=== PATIENT | male | born 1995 | race Caucasian/White ===

== ENCOUNTER 2021-12-20 05:32 | Emergency (ER) | payer OTHER ==
[~2021-12-20] VITALS: Ht 180.3 cm; Wt 75.0 kg
[2021-12-20 05:38] VITALS: TEMP 97.5
[2021-12-20 06:36] LABS: BASO # 0.1 K/mm3 (0.0-0.2); EOS # 0.2 K/mm3 (0.0-0.7); EOS % 2.2 % (0.0-4.0); GRAN # 3.3 K/mm3 (1.4-6.5); GRAN % 41.3 % (42.2-75.2); HEMATOCRIT 45.4 % (42.0-52.0); LYMPH # 3.5 K/mm3 (1.2-3.4); LYMPH % 44.2 % (20.0-51.0); MEAN CELL VOLUME 83 fl (80.0-100.0); MEAN CORPUSCULAR HEMOGLOBIN 29 pg (27-31); MEAN CORPUSCULAR HGB CONC 35 g/dl (33.0-37.0); MEAN PLATELET VOLUME 11.2 fl (7.4-10.4); MONO # 0.9 K/mm3 (0.1-0.6); MONO % 10.8 % (1.7-9.3); PLATELET COUNT 286 K/mm3 (130-400); RED BLOOD COUNT 5.47 M/mm3 (4.20-5.60); REDCELL DISTRIBUTION WIDTH-CV 12.8 % (11.5-14.5)
[2021-12-20 07:01] LABS: ALANINE AMINOTRANSFERASE 17 U/L (0-55); ALBUMIN 4.3 gm/dL (3.5-5.0); ALKALINE PHOSPHATASE 55 U/L (40-150); ANION GAP 10 mmol/L (7-16); AST,SGOT 13 U/L (5-34); BILIRUBIN,TOTAL 0.8 mg/dL (0.2-1.2); BLOOD UREA NITROGEN 12 mg/dL (9-21); CALCIUM 8.9 mg/dL (8.4-10.2); CARBON DIOXIDE 23 mmol/L (22-29); CHLORIDE 107 mmol/L (98-107); CREATININE, serum 1.26 mg/dL (0.72-1.25); GLUCOSE 125 mg/dL (70-99); POTASSIUM 3.5 mmol/L (3.5-4.5); SODIUM 140 mmol/L (136-145); TOTAL PROTEIN 6.9 gm/dL (6.2-8.1)
[2021-12-20 07:09] LABS: TROPONIN-I < 0.010 ng/mL (0.00-0.033)
[2021-12-20] MEDS ORDERED: NORCO 325 MG-51 TAB PO (11:18)
[2021-12-20 11:40] VITALS: BP 113/62; PULSE 59
== END 2021-12-20 11:40 | disposition home or self-care (01) ==
LOC: COL.ER 05:32
PROVIDERS: Emergency Medicine
DX: J93.9 Pneumothorax, unspecified (principal)
CPT/HCPCS: J1885; J7030

== ENCOUNTER → 2021-12-23 | Outpatient (CLI) | payer OTHER ==
[~2021-12-23] MED LIST: NORCO 325 MG-51 TAB PO
== END ==
LOC: COL.RAD 08:58
DX: J93.9 Pneumothorax, unspecified (principal)

== ENCOUNTER 2022-02-17 08:05 | Emergency (ER) | payer OTHER ==
[~2022-02-17] VITALS: Ht 180.3 cm; Wt 72.7 kg
[2022-02-17 08:16] VITALS: TEMP 98.5
[2022-02-17] MEDS ORDERED: AMOXICILLIN 8751 TAB PO (08:19)
[2022-02-17 08:46] LABS: HEMATOCRIT 43.6 % (42.0-52.0); HEMOGLOBIN 15.5 g/dl (13.5-18.0); MEAN CELL VOLUME 79 fl (80.0-100.0); MEAN CORPUSCULAR HEMOGLOBIN 28 pg (27-31); MEAN CORPUSCULAR HGB CONC 36 g/dl (33.0-37.0); MEAN PLATELET VOLUME 9.8 fl (7.4-10.4); PLATELET COUNT 220 K/mm3 (130-400); RED BLOOD COUNT 5.54 M/mm3 (4.20-5.60); REDCELL DISTRIBUTION WIDTH-CV 12.8 % (11.5-14.5)
[2022-02-17 08:59] LABS: CALCIUM 8.7 mg/dL (8.4-10.2); CREATININE, serum 0.89 mg/dL (0.72-1.25); POTASSIUM 3.9 mmol/L (3.5-4.5)
[2022-02-17 09:49] LABS: MONOSCREEN POSITIVE
[2022-02-17 09:58] LABS: BAND 5 % (0-10); LYMPHOCYTE 63 % (20.0-51.0); NEUTROPHILS 27 % (42.0-75.2)
[2022-02-17 09:59] LABS: PLATELET ESTIMATE NORMAL (NORMAL)
[2022-02-17] MEDS ORDERED: DECADRON 4MG TAB4 MG PO (10:01)
[2022-02-17 10:16] VITALS: BP 139/83; PULSE 87
[2022-02-19 08:17] LABS: PATHOLOGY DIFF REVIEW OK
== END 2022-02-17 10:17 | disposition home or self-care (01) ==
LOC: COL.ER 08:05
PROVIDERS: Emergency Medicine
DX: B27.90 Infectious mononucleosis, unspecified without complication (principal); J35.1 Hypertrophy of tonsils
CPT/HCPCS: J1100; J1885; J7030